=== PATIENT | male | born 1940 ===

== ENCOUNTER → 2016-08-24 | Day surgery (SDC) | payer OTHER ==
[~2016-08-24] MED LIST: ACETAMINOPHEN 1000 MG/100 ML VIAL IV ONE; BUPIVACAINE/EPINEPHRINE 0.25% PF 30 ML VIAL ONE; LACTATED RINGER'S 1000 ML INJ 1,000 ML ONE; LIDOCAINE 1%/EPINEPHrine 1:100,000 SOLN 20 ML VIAL ONE; MIDAZOLAM HCL 2 MG/2 ML VIAL ONE; NEOMYCIN/POLYMYXIN/BACITRACIN OINT 15 GM TUBE ONE; ONDANSETRON HCL 4 MG/2 ML VIAL IV PUSH ONE; PROPOFOL 200 MG/20 ML AMP IV ONE; ceFAZolin INJ 1,000 MG VIAL ONE
--- NOTE | 2016-08-24 12:49 | TN ---
cc: MIRZA FUCHS M.D. DATE OF SURGERY 08/24/2016 PREOPERATIVE DIAGNOSES 1. Basal cell carcinoma located on the left lower eyelid. 2. 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 PROCEDURES 1. Wide local excision resulting in primary defect of 1.5 cm. This required Mustarde flap for a secondary defect of 5 x 2 cm. This required also a left lower eyelid lateral canthopexy. 2. Wide local excision including the lesion. The defect is 1 cm. The secondary defect is 2 cm. This required tissue rearrangement reconstruction. SURGEON Mirza Fuchs MD ANESTHESIA LMA general. I also utilized approximately 10 cc of 1% lidocaine with epinephrine. ESTIMATED BLOOD LOSS Minimal. COMPLICATIONS None. PROCEDURE He was properly consented, marked, properly anesthetized, the skin sterilized with Microcyn and sterile draping was applied. The lesion in the left lower eyelid was removed including 0.2-0.3 cm margins, sent to pathology for frozen section. Although the margins were clean, close proximity was noticed at the 3 o'clock margin. We sent further specimens for permanent section from 2 to 5 o'clock. With this I proceeded and elevated the Mustarde flap with a Z-plasty at the end to shorten the flap. The secondary defect, however, was 2 x 5 cm. This was properly inset utilizing 5-0 Monocryl suture and 5-0 fast-absorbing gut. Due to the canthal laxity, a 5-0 silk was utilized as a canthopexy with a double needle in the inner aspect of the lateral orbital periosteum through the lateral canthal mechanism. This was also sutured closed utilizing the same suture material. Our attention was directed to the right nasal ala were a 1-cm defect was left including the lesion of the basal cell. This was properly reconstruction utilizing a V-to-Y tissue rearrangement reconstruction for a secondary defect of 2 x 1 cm. The same suture material was utilized as previously described. Good viability of both tissue was noted at the end of the case. The patient was awakened, extubated in the operating room, transferred back to the Post-Anesthesia Care Unit in stable condition. No complications appreciated. The patient tolerated the procedure fairly well. MD JOSEFA Cervantes/LORENA /12:31 PM /12:40 PM [email or web address]
== END | disposition home or self-care (01) ==
LOC: ESDC 10:12
PROVIDERS: ATTEND Plastic Surgery
DX: C44.119 Basal cell carcinoma of skin of left eyelid, including canthus (principal); C44.311 Basal cell carcinoma of skin of nose
CPT/HCPCS: 00300; 11642; 14060; 15732; 21282; 88305; 88331; J0131; J0690; J2250; J2405; J3010; J7120